=== PATIENT | female | born 1930 | race Caucasian/White ===

== ENCOUNTER 2019-10-09 08:24 | Emergency (ER) | payer MEDICARE ==
[~2019-10-09] VITALS: Ht 165.1 cm; Wt 72.6 kg
[2019-10-09 08:39] VITALS: BP 128/78
--- NOTE | 2019-10-09 08:52 | NUR ---
WOUND AT BILAT LOWER EXT CLEANED, APPLIED ATB OINTMENT AND COVERED W DRESSING
[2019-10-09] MEDS ORDERED: BACITRACIN ZINC OINT PACKET 1 EA PACKET TP ONE ×2 (09:00→09:01)
== END 2019-10-09 09:04 | disposition home or self-care (01) ==
LOC: ER 08:24
DX: L03.116 Cellulitis of left lower limb (principal)
CPT/HCPCS: 99283; A6403

== ENCOUNTER 2022-02-08 17:31 | Inpatient (IN) | payer MEDICARE ==
[~2022-02-08] VITALS: Ht 165.1 cm; Wt 76.2 kg
[2022-02-08] MEDS ORDERED: ONDANSETRON HCL/PF 4 MG/2 ML VIAL IVP ONE (18:00)
[2022-02-08] MEDS ORDERED: IV NS 0.9% 500 ML BAG IV ONE (18:00)
--- NOTE | 2022-02-08 18:15 | NUR ---
IV LINE ESTABLISHED BLOOD DRAWN AND SENT TO LAB.
[2022-02-08] MEDS ORDERED: ONDANSETRON HCL/PF 4 MG/2 ML VIAL ONE (18:16)
[2022-02-08 18:22] LABS: BASOPHILS # (AUTO) 0.2 K/uL (0.0-0.2); BASOPHILS % (AUTO) 0.8 % (0.0-2.0); EOSINOPHILS % (AUTO) 0.9 % (0.0-6.0); HEMATOCRIT 32 % (33-45); HEMOGLOBIN 10.3 g/dL (11.5-14.8); LYMPHOCYTES # (AUTO) 0.7 K/uL (0.8-4.8); LYMPHOCYTES % (AUTO) 3.2 % (20.0-44.0); MEAN CORPUSCULAR HGB CONC 33 g/dl (31.0-36.0); MEAN CORPUSCULAR VOLUME 96 fL (82-100); MONOCYTES # (AUTO) 0.8 K/uL (0.1-1.30); MONOCYTES % (AUTO) 3.8 % (2.0-12.0); NEUTROPHILS # (AUTO) 19.4 K/uL (1.8-8.9); NEUTROPHILS % (AUTO) 91.3 % (43.0-81.0); PLATELET COUNT (AUTO) 647 K/uL (150-450); RED BLOOD CELL COUNT(AUTO) 3.31 MIL/uL (4.0-5.2); WHITE BLOOD COUNT (AUTO) 21.2 K/uL (4.3-11.0)
[2022-02-08 18:37] LABS: CALCIUM, SERUM 8.9 mg/dL (8.5-10.1); CARBON DIOXIDE 23 mmol/L (21-32); CHLORIDE 104 mmol/L (98-107); GLUCOSE 100 mg/dL (74-106); POTASSIUM 4.1 mmol/L (3.5-5.1); SODIUM SERUM 137 mmol/L (136-145); UREA NITROGEN, BLOOD 11 mg/dL (7-18)
[2022-02-08 18:44] LABS: ALANINE AMINOTRANSFERASE 15 U/L (12-78); ALBUMIN 2.7 g/dL (3.4-5.0); ALKALINE PHOSPHATASE 195 U/L (46-116); ASPARTATE AMINOTRANSFERASE 31 U/L (15-37); BILIRUBIN,DIRECT 0.2 mg/dL (0.0-0.2); BILIRUBIN,TOTAL 0.8 mg/dL (0.2-1.0); TOTAL PROTEIN, SERUM 6.9 g/dL (6.4-8.2)
[2022-02-08] MEDS ORDERED: CEFTRIAXONE 1GM BAG (ER ONLY) 1 GM/50 ML PIGGYBACK IV ONE (19:00)
[2022-02-08] MEDS ORDERED: CEFTRIAXONE 1GM BAG (ER ONLY) 50 ML IV ONE (19:03)
[2022-02-08] MEDS ORDERED: PANT40TA2 PO (19:21)
[2022-02-08] MEDS ORDERED: POLY17PO4 PO (19:21)
[2022-02-08] MEDS ORDERED: TRAM50TA2 PO (19:21)
[2022-02-08] MEDS ORDERED: APIX2.5T PO (19:21)
[2022-02-08] MEDS ORDERED: MAGN400O6 PO (19:21)
[2022-02-08] MEDS ORDERED: ACET-2605 PO (19:21)
[2022-02-08] MEDS ORDERED: LOPE2CAP14 PO (19:21)
[2022-02-08] MEDS ORDERED: ATOR10TA PO (19:21)
[2022-02-08] MEDS ORDERED: ACET-868 PO (19:21)
[2022-02-08] MEDS ORDERED: MAG30ORA PO (19:21)
[2022-02-08] MEDS ORDERED: MAGN400T26 PO (19:21)
[2022-02-08] MEDS ORDERED: CHOL100043 PO (19:21)
[2022-02-08] MEDS ORDERED: CYAN500T64 PO (19:21)
[2022-02-08] MEDS ORDERED: DOCU-141 PO (19:21)
[2022-02-08] MEDS ORDERED: FLUT1BLS6 IH (19:21)
[2022-02-08] MEDS ORDERED: SENN-261 PO (19:21)
[2022-02-08] MEDS ORDERED: FLUT16SP16 (19:21)
[2022-02-08] MEDS ORDERED: ZOLP5TAB8 PO (19:21)
[2022-02-08] MEDS ORDERED: DONE10TA44 PO (19:21)
[2022-02-08] MEDS ORDERED: CITA40TA11 PO (19:21)
[2022-02-08] MEDS ORDERED: HYDR-4209 PO (19:21)
[2022-02-08] MEDS ORDERED: BISA10SU11 RC (19:21)
[2022-02-08] MEDS ORDERED: MORPHINE SULFATE INJ 2 MG/ML DISP.SYRIN IV PRN (19:30)
[2022-02-08] MEDS ORDERED: CEFTRIAXONE 1 G in IV D5W 50 ML IV SCH (19:30)
[2022-02-08] MEDS ORDERED: ACETAMINOPHEN 325 MG TABLET PO PRN (19:30)
[2022-02-08] MEDS ORDERED: IV NS 0.9% 1,000 ML IV SCH (19:30)
[2022-02-08] MEDS ORDERED: ONDANSETRON HCL/PF 4 MG/2 ML VIAL IVP PRN (19:30)
[2022-02-08 20:00] LABS: BILIRUBIN,URINE NEGATIVE (NEGATIVE); COLOR,URINE YELLOW (YELLOW); LEUKOCYTE ESTERASE ,URINE NEGATIVE (NEGATIVE); NITRITE, URINE NEGATIVE (NEGATIVE); PH,URINE 7.5 (5.0-8.0); PROTEIN,URINE NEGATIVE (NEGATIVE); UGLUCOSE NEGATIVE (NEGATIVE); UROBILINOGEN,URINE 0.2 EU/dL (0.2)
[2022-02-08] MEDS ORDERED: HEPARIN SODIUM, PORCINE 5000 UNITS/1 ML VIAL SQ SCH (21:00)
--- NOTE | 2022-02-08 21:24 | NUR ---
REPORT GIVEN TO VIRIDIANA PEREZ.
[2022-02-08] MEDS ORDERED: POLYETHYLENE GLYCOL 3350 17 GM POWD.PACK PO PRN (22:00)
[2022-02-08] MEDS ORDERED: DOCUSATE SODIUM 100 MG CAPSULE PO PRN (22:00)
--- NOTE | 2022-02-08 22:24 | NUR ---
PT TRANSFERRED TO [facility] PER [facility].
[2022-02-08 22:40] VITALS: BP 119/53
[2022-02-08 23:00] VITALS: BP 119/53
--- NOTE | 2022-02-08 23:11 | NUR ---
TELE/RN ADMITTING NOTE RECEIVED REPORT FROM COOL ROOFING INSTALLER MIGUEL. PATIENT ARRIVED TO UNIT VIA GURNEY AND 2 STAFF MEMBERS. PATIENT IS BEING ADMITTED WITH DX OF FEVER. PATIENT IS ALERT AND ORIENTED X 3. ABLE TO MAKE NEEDS KNOWN. DENIES PAIN AT THIS TIME. CONTINUES ON O2 3L VIA NC WITH NO S/SX OF RESPIRATORY DISTRESS NOTED. IV ACCESS TO LEFT HAND #22G INTACT, PATENT AND SALINE LOCKED. PT WILL BE ON IVF AND IV ABX. FAMILY CURRENTLY AT BEDSIDE. SKIN CHECK PERFORMED ON ADMISSION WITH OLD SURGICAL INCISION NOTED TO LEFT FEMUR. PICTURE TAKEN AND PLACED IN CHART. PLACED ON TELE MONITOR WITH CURRENT READING SR. PATIENT ORIENTED TO ROOM, CALL LIGHT AND UNIT. CALL LIGHT WITHIN REACH. ASPIRATION, FALL AND SAFETY PRECAUTIONS MAINTAINED. WILL CONTINUE TO MONITOR.
[2022-02-09] VITALS: BP 116/51
[2022-02-09] MEDS ORDERED: VANCOMYCIN 1 GM in IV D5W 250ml IV ONE (01:00)
[2022-02-09] MEDS ORDERED: CEFEPIME 2 GM in IV D5W 100 ML IV ONE (01:00)
[2022-02-09] MEDS ORDERED: VANCOMYCIN 1 GM VIAL ONE (01:23)
[2022-02-09] MEDS ORDERED: CEFEPIME 1 GM VIAL ONE (01:46)
--- NOTE | 2022-02-09 05:00 | NUR ---
TELE/RN NOTE PATIENTS DAUGHTER, ABDI ECHAVARRIA PHONE # [phone]
[2022-02-09 06:17] LABS: BASOPHILS # (AUTO) 0.1 K/uL (0.0-0.2); BASOPHILS % (AUTO) 0.5 % (0.0-2.0); EOSINOPHILS % (AUTO) 1.1 % (0.0-6.0); HEMATOCRIT 26 % (33-45); HEMOGLOBIN 8.6 g/dL (11.5-14.8); LYMPHOCYTES # (AUTO) 1.3 K/uL (0.8-4.8); LYMPHOCYTES % (AUTO) 9.9 % (20.0-44.0); MEAN CORPUSCULAR HGB CONC 33 g/dl (31.0-36.0); MEAN CORPUSCULAR VOLUME 95 fL (82-100); MONOCYTES # (AUTO) 0.7 K/uL (0.1-1.30); MONOCYTES % (AUTO) 5.3 % (2.0-12.0); NEUTROPHILS # (AUTO) 11.1 K/uL (1.8-8.9); NEUTROPHILS % (AUTO) 83.2 % (43.0-81.0); PLATELET COUNT (AUTO) 493 K/uL (150-450); RED BLOOD CELL COUNT(AUTO) 2.77 MIL/uL (4.0-5.2); WHITE BLOOD COUNT (AUTO) 13.3 K/uL (4.3-11.0)
--- NOTE | 2022-02-09 06:40 | NUR ---
TELE/RN CLOSING NOTE PATIENT CURRENTLY SLEEPING IN BED. ALERT AND ORIENTED X 4. ABLE TO MAKE NEEDS KNOWN. DENIES PAIN AT THIS TIME. CONTINUES ON O2 3L VIA NC WITH NO S/SX OF RESPIRATORY DISTRESS NOTED. IV ACCESS TO LEFT HAND #22G INTACT AND PATENT. CONTINUES ON IVF NS @ 75ML/HR. CONTINUES ON IV ABX. CONTINUES ON TELE MONITOR WITH CURRENT READING SR HR 69. CALL LIGHT WITHIN REACH. ASPIRATION, FALL AND SAFETY PRECAUTIONS MAINTAINED. WILL ENDORSE PLAN OF CARE TO ONCOMING SHIFT.
[2022-02-09 06:43] LABS: ALBUMIN 2.2 g/dL (3.4-5.0); BILIRUBIN,TOTAL 0.6 mg/dL (0.2-1.0); CALCIUM, SERUM 8.4 mg/dL (8.5-10.1); CREATININE 0.9 mg/dL (0.6-1.3); MAGNESIUM 2.2 mg/dL (1.8-2.4); PHOSPHORUS 4.1 mg/dL (2.5-4.9); POTASSIUM 3.8 mmol/L (3.5-5.1); TOTAL PROTEIN, SERUM 5.7 g/dL (6.4-8.2)
--- NOTE | 2022-02-09 07:46 | NUR ---
RN OPENING NOTES Patient seen comfortably lying in bed, no shortness of breath, no apparent distress noted, breathing even and unlabored, denies any pain or discomfort at this time, no grimacing. Call light left within reach, safety precautions in place, brakes locked, side rails up X 2, will monitor closely for any changes.
[2022-02-09 08:00] VITALS: BP 115/50
[2022-02-09] MEDS ORDERED: VANCOMYCIN 1 GM in IV D5W 250 ML IV SCH (09:00)
[2022-02-09] MEDS: FLUTICASONE PROPIONATE 16 GM BOTTLE NS SCH ×2 (09:09→17:56)
[2022-02-09] MEDS: CITALOPRAM HYDROBROMIDE 20 MG TABLET PO SCH (09:10)
[2022-02-09] MEDS: DONEPEZIL 5 MG TABLET PO SCH (09:10)
[2022-02-09] MEDS: PANTOPRAZOLE 40 MG TABLET.DR PO SCH (09:10)
[2022-02-09] MEDS: APIXABAN 2.5 MG TABLET PO SCH ×2 (09:14→16:07)
[2022-02-09 10:24] LABS: IRON, SERUM 28 ug/dl (50-175); TOTAL IRON BINDING CAPACITY 186 ug/dl (250-450)
--- NOTE | 2022-02-09 10:31 | NUR ---
WOUND CARE CONSULT: PT PRESENTS WITH HEALING LEFT HIP INCISION, PRESENT ON ADMISSION. PT NOTED TO BE INCONTINENT OF STOOL. RECOMMENDATIONS MADE FOR SKIN PROTECTION. DISCUSSED WITH NURSING STAFF. MD IN AGREEMENT WITH PLAN OF CARE.
[2022-02-09] MEDS: FLUTICASONE/VILANTEROL 1 EACH BLST.W.DEV IH SCH (10:40)
[2022-02-09] MEDS: FUROSEMIDE 40 MG/4 ML VIAL IV SCH ×3 (10:55→19:12)
[2022-02-09] MEDS: POTASSIUM CHLORIDE 20 MEQ TAB.PRT.SR PO SCH ×3 (10:55→12:38)
[2022-02-09] MEDS: Z GUARD REMEDY 4 OZ OINT TP SCH (10:55)
[2022-02-09 10:57] LABS: CHOLESTEROL 159 mg/dL (<200); FERRITIN 177 ng/mL (8-388); HDL CHOLESTEROL 77 mg/dL (40-60); LDL 60 mg/dL (0-99); TRIGLYCERIDES 75 mg/dL (30-150)
[2022-02-09] MEDS ORDERED: Z GUARD REMEDY 4 OZ OINT TP PRN (11:00)
[2022-02-09 12:00] VITALS: BP 112/47
[2022-02-09] MEDS ORDERED: POTASSIUM CHLORIDE 20 MEQ TAB.PRT.SR PO SCH (14:00)
[2022-02-09] MEDS ORDERED: CEFEPIME 2 GM in IV D5W 100 ML IV SCH (15:00)
[2022-02-09 16:00] VITALS: BP 121/59
--- NOTE | 2022-02-09 19:50 | NUR ---
RN CLOSING NOTES Patient lying in bed, no shortness of breath, respirations even and unlabored, no dizziness, no palpitations, no chest pain, denies any pain or discomfort, no grimacing, remained afebrile. All due medications given per MD order and tolerated well. Patient has order for IV ATB and has a right upper arm midline covered with clean, intact and dry dressings and no swelling, no redness, no c/o pain or discomfort at site. Kept clean and dry, call light left within reach, all needs attended, aspiration precautions observed at all times, kept head of bed elevated, safety precautions in place, frequent visual checks rendered, brakes locked, side rails up X 2, will endorse to next shift for continuity of care.
[2022-02-09 20:00] VITALS: BP 139/54
[2022-02-09] MEDS ORDERED: CEFTRIAXONE 1 G in IV D5W 50 ML IV SCH (20:00)
[2022-02-09] MEDS: VANCOMYCIN 1 GM in IV D5W 250ml IV SCH (20:12)
[2022-02-09] MEDS ORDERED: ATORVASTATIN 10 MG TABLET PO SCH (22:00)
[2022-02-10] VITALS: BP 138/57
[2022-02-10 04:25] VITALS: BP 124/48
--- NOTE | 2022-02-10 07:10 | NUR ---
END OF SHIFT REPORT Patient is Alert Oriented x3 Forgetful, easily oriented. Hard of hearing. Oxygen support 2L NC, maintaining Oxygen 95%, no c/o SOB. Sinus Rhythm in the Tele monitor HR 70. ABIGAIL midline intact. On IV abx. Afebrile. Left lateral incision dressing clean and dry, patient denies pain. Turned and repositioned, offloading. Plan possible dc home. Fall precaution maintained. Will endorse to oncoming RN.
[2022-02-10 07:14] LABS: BASOPHILS # (AUTO) 0.1 K/uL (0.0-0.2); EOSINOPHILS % (AUTO) 4.8 % (0.0-6.0); HEMATOCRIT 29 % (33-45); HEMOGLOBIN 9.3 g/dL (11.5-14.8); LYMPHOCYTES # (AUTO) 1.2 K/uL (0.8-4.8); LYMPHOCYTES % (AUTO) 13.4 % (20.0-44.0); MEAN CORPUSCULAR HGB CONC 33 g/dl (31.0-36.0); MEAN CORPUSCULAR VOLUME 95 fL (82-100); MONOCYTES # (AUTO) 0.9 K/uL (0.1-1.30); MONOCYTES % (AUTO) 10.1 % (2.0-12.0); NEUTROPHILS # (AUTO) 6.1 K/uL (1.8-8.9); NEUTROPHILS % (AUTO) 70.7 % (43.0-81.0); PLATELET COUNT (AUTO) 512 K/uL (150-450); RED BLOOD CELL COUNT(AUTO) 3.01 MIL/uL (4.0-5.2); WHITE BLOOD COUNT (AUTO) 8.7 K/uL (4.3-11.0)
--- NOTE | 2022-02-10 07:20 | NUR ---
ms rn received on bed,sleeping oriented x3,not in any form of distress, respirations even and unlabored,no sob noted, lungs are diminished,abdomen soft,positive bowel sounds, denies pain at this time,all needs attended.
[2022-02-10 07:53] LABS: ALBUMIN 2.4 g/dL (3.4-5.0); BILIRUBIN,TOTAL 0.4 mg/dL (0.2-1.0); CALCIUM, SERUM 8.8 mg/dL (8.5-10.1); PHOSPHORUS 3.5 mg/dL (2.5-4.9); TOTAL PROTEIN, SERUM 6.4 g/dL (6.4-8.2)
[2022-02-10 08:00] VITALS: BP 117/46
[2022-02-10] MEDS: PANTOPRAZOLE 40 MG TABLET.DR PO SCH (09:20)
[2022-02-10] MEDS: APIXABAN 2.5 MG TABLET PO SCH (09:20)
--- NOTE | 2022-02-10 09:20 | NUR ---
ms ahn breakfast served,due meds given,tolerated well.
[2022-02-10] MEDS: CITALOPRAM HYDROBROMIDE 20 MG TABLET PO SCH (09:21)
[2022-02-10] MEDS: DONEPEZIL 5 MG TABLET PO SCH (09:21)
[2022-02-10] MEDS: FLUTICASONE/VILANTEROL 1 EACH BLST.W.DEV IH SCH (09:22)
[2022-02-10] MEDS: FLUTICASONE PROPIONATE 16 GM BOTTLE NS SCH (09:23)
--- NOTE | 2022-02-10 10:30 | NUR ---
ms rn was seen by justin olivares w/ order to go home today. will notify family.
[2022-02-10 11:54] VITALS: BP 122/70
[2022-02-10] MEDS: VANCOMYCIN 1 GM in IV D5W 250ml IV SCH (14:34)
[2022-02-10] MEDS: Z GUARD REMEDY 4 OZ OINT TP SCH (14:35)
--- NOTE | 2022-02-10 15:00 | NUR ---
ms rn patient is ready to be discharge, waiting for the emergency care attendant to pick her up, patient refused to take a picture of her previous sx site. no s/s of infection noted.
--- NOTE | 2022-02-10 15:20 | NUR ---
ms rn personal caregiver came, last atb iv was given, discharge instructions given to caregiver, went home via private car, no distress noted.
== END 2022-02-10 17:30 | disposition home health service (06) | DRG 872 ==
LOC: ER 17:35 → MED 22:10 → TELE 22:40
PROVIDERS: ADMIT Internal Medicine; ATTEND Registered Nurse
PROC: 05H933Z Insertion of Infusion Device into Right Brachial Vein, Percutaneous Approach (ICD-10-PCS; principal; 2022-02-09)
DX: A41.89 Other specified sepsis (principal); E87.2 Acidosis; J96.11 Chronic respiratory failure with hypoxia; D62 Acute posthemorrhagic anemia; F32.A Depression, unspecified; D75.839 Thrombocytosis, unspecified; E78.5 Hyperlipidemia, unspecified; G47.00 Insomnia, unspecified; Z88.2 Allergy status to sulfonamides; Z79.01 Long term (current) use of anticoagulants; Z79.899 Other long term (current) drug therapy; Z96.642 Presence of left artificial hip joint; Z99.81 Dependence on supplemental oxygen; F03.90 Unspecified dementia, unspecified severity, without behavioral disturbance, psychotic disturbance, mood disturbance, and anxiety; J84.10 Pulmonary fibrosis, unspecified; F09 Unspecified mental disorder due to known physiological condition; Z20.822 Contact with and (suspected) exposure to COVID-19; I35.0 Nonrheumatic aortic (valve) stenosis; I27.20 Pulmonary hypertension, unspecified; K44.9 Diaphragmatic hernia without obstruction or gangrene; H91.90 Unspecified hearing loss, unspecified ear
CPT/HCPCS: 36415; 71045-TC; 71250-TC; 80048-TC; 80053-TC; 80061-TC; 80076-TC; 82728-TC; 83540-TC; 83605-TC; 83735-TC; 84100-TC; 84484-TC; 85025-TC; 85730-TC; 87040-TC; 87081-TC; 87086-TC; 93307-TC; C9803; G0378; J0692; J0696; J1940; J2405; J3370; J7030; J7040; J7060